=== PATIENT | male | born 1960 | race Caucasian/White ===

== ENCOUNTER → 2018-10-15 | Outpatient (CLI) | payer OTHER ==
--- NOTE | 2018-10-15 17:00 | RAD ---
EXAM: PA and lateral views of both hands DATE: 10/15/2018 12:00 AM INDICATION: Bilateral hand pain COMPARISON: No Prior FINDINGS/ IMPRESSION: 1. No evidence of acute fracture or dislocation. 2. Small osseous domenic is seen at the level of the left MCP joint, possibly calcific periarthritis. 3. Joint spaces are preserved without significant degenerative/proliferative change. 4. Mild widening of the left scapholunate interval on this nonstandard projection, suggesting age-indeterminate scapholunate ligament injury or projectional abnormality. Electronically signed by: Ramin Srinivasan MD (10/15/2018 4:57 PM) [facility]
--- NOTE | 2018-10-15 17:02 | RAD ---
Indications: Left knee pain and right elbow pain. 2 view study of the left knee: No acute fracture or dislocation or lytic process is evident. There is minimal degenerative spurring of the lateral tibiofemoral joint compartment without joint space narrowing. No significant left knee joint effusion is seen radiographically. IMPRESSION: No acute osseous abnormality. 2 view right elbow study: No joint effusion is seen. No acute fracture or dislocation or lytic process is seen. No significant arthritic change is seen. IMPRESSION: No acute osseous abnormality. Electronically signed by: Mauricio Villaseñor MD (10/15/2018 4:59 PM) [place] [id number]
== END | disposition home or self-care (01) ==
LOC: PMG 15:26
PROVIDERS: ATTEND Registered Nurse
DX: M76.9 Unspecified enthesopathy, lower limb, excluding foot (principal); M79.642 Pain in left hand; M79.641 Pain in right hand; M25.521 Pain in right elbow
CPT/HCPCS: 73070; 73120; 73560

== ENCOUNTER → 2018-10-19 | Outpatient (CLI) | payer OTHER ==
--- NOTE | 2018-10-19 16:30 | RAD ---
Ultrasound of the right inguinal region 10/19/2018 CLINICAL HISTORY: Right inguinal hernia. TECHNIQUE: A real-time ultrasound examination of the right inguinal region was performed. Multiple images were obtained. FINDINGS: A small fat-containing right inguinal hernia is seen which measures 2.1 cm in greatest diameter. IMPRESSION: Small fat-containing right inguinal hernia. Electronically signed by: Terry Catherine MD (10/19/2018 4:27 PM) [id number]
== END | disposition home or self-care (01) ==
LOC: US 13:02
PROVIDERS: ATTEND Registered Nurse
DX: K40.90 Unilateral inguinal hernia, without obstruction or gangrene, not specified as recurrent (principal)
CPT/HCPCS: 76881